=== PATIENT | female | born 1945 ===

== ENCOUNTER → 2022-12-04 06:10 | Outpatient (CLI) | payer OTHER | END | disposition home or self-care (01) | LOC: LAB 06:10 | PROVIDERS: ATTEND Orthopaedic Surgery | DX: M85.9 Disorder of bone density and structure, unspecified (principal); E83.42 Hypomagnesemia; E56.1 Deficiency of vitamin K; E88.89 Other specified metabolic disorders; M81.8 Other osteoporosis without current pathological fracture ==

== ENCOUNTER 2023-11-19 07:24 | Outpatient (CLI) | payer OTHER | END 2023-11-19 07:30 | disposition home or self-care (01) | LOC: TOM 07:24 | PROVIDERS: ATTEND Internal Medicine Gastroenterology | DX: R19.5 Other fecal abnormalities (principal); N18.30 Chronic kidney disease, stage 3 unspecified; I10 Essential (primary) hypertension ==

== ENCOUNTER → 2025-01-31 07:17 | Outpatient (CLI) | payer OTHER ==
[2025-01-31 09:30] LABS: ALT/SGPT 35.0 U/L (12-78); AST/SGOT 29.0 U/L (15-37); BILIRUBIN TOTAL 0.49 mg/dL (0.3-1.2); BUN CREA RATIO 21.0 (7.0-25.0); CREATININE SERUM 1.3 mg/dL (0.55-1.02); GFR 39.41; GLOBULINA 2.7 G/DL (2.4-3.5); GLUCOSE FASTING 96.0 mg/dL (65-100); OSMOLALITY SERUM 290.0 MOSM/KG (275-295); TSH 2.38 uIU/mL (0.358-3.74)
[2025-02-01 16:11] LABS: CALCIUM IONIZED 5.0 mg/dL (4.5-5.6)
== END | disposition home or self-care (01) ==
LOC: LAB 07:17
PROVIDERS: ATTEND Orthopaedic Surgery
DX: E55.9 Vitamin D deficiency, unspecified (principal); M85.9 Disorder of bone density and structure, unspecified; E56.1 Deficiency of vitamin K; E88.89 Other specified metabolic disorders; M81.8 Other osteoporosis without current pathological fracture; E03.9 Hypothyroidism, unspecified